=== PATIENT | male | born 1955 | race Caucasian/White ===

== ENCOUNTER 2017-05-06 20:52 | Emergency (ER) | payer OTHER ==
--- NOTE | ~2017-05-06 | CT4 ---
[facility] A Service of [facility] RADIOLOGY TEXT RESULTS PATIENT: JAVED MASON LOCATION: [facility] : 57 UNIT #: [id number] AGE: [address]: Janelle Montgomery MD SEX: M ORDER DR: [id number] [facility]. [place], [place] [address] [id number] MR#: [id number] Acc #: [id number] NAME: JAVED MASON. : 1955 SEX: M STUDY DATE/TIME: 05/06/2017 22:43 UNIT: [facility] ROOM: STUDY DESCRIPTION: CT Abd and Pelv Wo Cont Attending Physician: Janelle Montgomery M.D. Ordering Physician: Janelle Montgomery M.D. Primary Care Physician: Cj Ramirez M.D. MEDICAL IMAGING REPORT This report is preliminary unless electronic signature is present EXAM CT abdomen and pelvis, noncontrast, kidney stone protocol, 05/06/2017 HISTORY 62-year-old male in the ED complaining of left side back and flank pain radiating into the buttock and left leg. Symptoms for about [address] examination of the abdomen and pelvis was performed without oral or IV contrast using kidney stone protocol as requested. This CT exam was performed with one or more of the following radiation dose reduction techniques: automatic exposure control, adjustment of mA and/or kV according to patient size, and iterative reconstruction. FINDINGS ABDOMEN FINDINGS: 5 mm nonobstructing calculus in the left mid kidney. Both kidneys, both ureters and the urinary bladder are otherwise negative. No evidence of urinary obstruction. Liver, pancreas and spleen are within normal limits. Nondistended gallbladder. No bile duct dilatation. Normal-caliber abdominal aorta. Severe diverticulosis throughout the colon. No CT evidence of acute diverticulitis. Normal appendix. PELVIS FINDINGS: Bladder, prostate and rectum are within normal limits. No inguinal hernia. Limited lung base images show no active disease in the lower chest. IMPRESSION [facility] A Service of [facility] RADIOLOGY TEXT RESULTS PATIENT: JAV[facility] MAS[id number] 57 UNIT #: [id number] AGE: [address]: Janelle Montgomery MD SEX: M ORDER DR: 1. No acute abnormality within the abdomen or pelvis. 2. 5 mm nonobstructing calculus left mid kidney. 3. Severe diverticulosis throughout the colon. Normal appendix. Dictated by... Sergei Willis M.D. THIS IS AN ELECTRONICALLY VERIFIED REPORT Sergei Willis M.D. at 05/07/2017 5:51 AM FREDERIC/amanda TD: 05/07/2017 02:28 JOB #: [id number] MEDICAL IMAGING REPORT Page 1 of 1 COPY
[2017-05-06 22:07] LABS: URINE SOURCE CLEAN CATCH
[2017-05-06 22:10] LABS: BASOPHIL# 0.1 X10e3 (0-0.3); BASOPHIL% 0.9 % (0-2.5); EOSINOPHIL# 0.2 X10e3 (0-0.7); EOSINOPHIL% 2.3 % (0.0-7.0); HEMATOCRIT 44.2 % (38.0-50.0); LYMPHOCYTE# 2.7 X10e3 (1.0-3.5); LYMPHOCYTE% 29.8 % (17.0-45.0); MEAN CELL VOLUME 92.2 FL (83-96); MEAN CORPUSCULAR HEMOGLOBIN 31.3 PG (28-34); MEAN CORPUSCULAR HGB CONC 33.9 g/dL (30-36); MEAN PLATELET VOLUME 7.6 FL (6.5-11.5); MONOCYTE# 0.5 X10e3 (0-1.0); MONOCYTE% 6.1 % (3.0-12.0); NEUTROPHIL# 5.4 X10e3 (1.5-7.1); NEUTROPHIL% 60.9 % (40-75); PLATELET COUNT 245 X10e3 (140-420); RED BLOOD COUNT 4.79 X10e (3.90-5.60); RED CELL DISTRIBUTION WIDTH 12.9 % (11.0-15.5); WHITE BLOOD COUNT 8.9 X10e3 (4.0-10.5)
[2017-05-06 22:11] LABS: URINE APPEARANCE CLEAR; URINE BILIRUBIN NEG (NEG); URINE BLOOD NEG (NEG); URINE COLOR YELLOW; URINE GLUCOSE NEG (NEG); URINE KETONE NEG (NEG); URINE LEUKOCYTE ESTERASE NEG (NEG); URINE NITRATE NEG (NEG); URINE PROTEIN NEG (NEG); URINE SPECIFIC GRAVITY 1.024 (1.003-1.035)
[2017-05-06 22:14] LABS: DIFF IND NO
[2017-05-06 22:15] LABS: CULTURE INDICATED? NO
[2017-05-06 22:24] LABS: POC - CKMB <1.0 ng/mL (0.0-7.9); POC - TROPONIN <0.05 ng/mL (<=0.05)
[2017-05-06 22:33] LABS: CALCIUM SERUM 9.2 mg/dL (8.4-10.2); GLOM FILT RATE Estimated 80.9 mL/min (>60); POTASSIUM 3.8 mmol/L (3.5-5.1)
== END 2017-05-07 00:34 | disposition home or self-care (01) ==
LOC: CED 20:52
PROVIDERS: Emergency Medicine
DX: R10.9 Unspecified abdominal pain (principal)
CPT/HCPCS: 74176; 80048; 81003; 82553; 84484; 85025; 96361; 96374; 99284; J1885